=== PATIENT | female | born 1955 | race American Indian/Alaskan Native ===

== ENCOUNTER 2016-10-26 15:29 | Emergency (ER) | payer SELFPAY ==
[2016-10-26 15:29] VITALS: BMI 27.8
[2016-10-26 15:36] VITALS: RESP 18
[2016-10-26] MEDS ORDERED: Sodium Chloride 0.9% 1,000 ML IV ONE (15:50)
--- NOTE | 2016-10-26 15:54 | C.PDOC ---
History Of Present Illness 61 y/o female that presents to the ED for evaluation of left flank pain, and left side abdominal pain for the last 3 days. Otherwise, denies any fever, n/v/d , dysuria, hematuria, or any other associated symptoms at this time. Time Seen by Provider: 10/26/16 15:41 Chief Complaint (Nursing): Abdominal Pain History Per: Patient History/Exam Limitations: no limitations Onset/Duration Of Symptoms: Days (3) Current Symptoms Are (Timing): Still Present Location Of Pain/Discomfort: LUQ, LLQ Radiation Of Pain To:: Flank (left) Quality Of Discomfort: "Pain" Associated Symptoms: denies: Fever, Chills, Nausea, Vomiting, Diarrhea, Loss Of Appetite, Back Pain, Chest Pain, Constipation, Urinary Symptoms Exacerbating Factors: None Alleviating Factors: None Recent travel outside of the [place]: No Additional History Per: Patient Abnormal Vaginal Bleeding: No Past Medical History Reviewed: Historical Data, Nursing Documentation, Vital Signs Vital Signs: Last Vital Signs Temp 97.6 F 10/26/16 18:00 Pulse 60 10/26/16 18:00 Resp 18 10/26/16 18:00 BP 127/72 10/26/16 18:00 Pulse Ox 97 10/26/16 18:00 - Medical History PMH: Denies: Depression - [facility] Procedures INJECT/INFUSE NEC (12/28/13) Family History: States: No Known Family Hx - Social History Hx Tobacco Use: No Hx Alcohol Use: No Hx Substance Use: No - Immunization History Hx Tetanus Toxoid Vaccination: No Review Of Systems Except As Marked, All Systems Reviewed And Found Negative. Constitutional: Negative for: Fever, Chills Gastrointestinal: Positive for: Abdominal Pain. Negative for: Nausea, Vomiting , Diarrhea, Constipation Genitourinary: Negative for: Dysuria, Frequency, Incontinence, Hematuria Musculoskeletal: Positive for: Back Pain (left flank) Skin: Negative for: Rash Neurological: Negative for: Weakness, Numbness Physical Exam - Physical Exam Appears: Non-toxic, Other (moderate painful distress) Skin: Normal Color, Warm, Dry Head: Atraumatic, Normacephalic Eye(s): bilateral: Normal Inspection, EOMI Neck: Normal ROM, Supple Chest: Symmetrical, No Tenderness Cardiovascular: Rhythm Regular, No Murmur Respiratory: Normal Breath Sounds, No Rales, No Rhonchi, No Wheezing Gastrointestinal/Abdominal: Soft, No Tenderness Back: CVA Tenderness (left), No Vertebral Tenderness, No Paraspinal Tenderness Neurological/Psych: Oriented x3, Normal Speech, Normal Cognition ED Course And Treatment - Laboratory Results Result Diagrams: 10/26/16 16:32 10/26/16 16:32 O2 Sat by Pulse Oximetry: 100 (on RA) Pulse Ox Interpretation: Normal Progress Note: Blood work, urinalysis, abd & pelvis CT ordered and reviewed. Patient was given IV fluids, and Toradol in the ER. Medical Decision Making Medical Decision Making: r/o uti/pyelo, renal stone, gastritis. labs imaging pending 530: pt reassesed: labs ct unremarkable. pain improved. abd soft, no ttp. pt well appearing, smiling, in nad. advise outptf/u and return precautions Disposition - Disposition Referrals: Tony Bay MD [Staff Provider] - [facility] [Outside] [facility] [Outside] Disposition: HOME/ ROUTINE Disposition Time: 06:00 Condition: STABLE Additional Instructions: please follow up with your doctor/clinic. return to er with worsening symptoms or concerns. Prescriptions: Famotidine [Pepcid] 20 mg PO DAILY #20 tab Instructions: Acute Abdominal Pain (ED) - Clinical Impression Clinical Impression: Abdominal pain, Flank pain - Scribe Statement The provider has reviewed the documentation as recorded by the Raimundo Fung All medical record entries made by the Rejiibkalpana were at my direction and personally dictated by me. I have reviewed the chart and agree that the record accurately reflects my personal performance of the history, physical exam, medical decision making, and the department course for this patient. I have also personally directed, reviewed, and agree with the discharge instructions and disposition.
[2016-10-26 16:35] LABS: BASO % 0.6 % (0.0-2.0); EOS % 0.4 % (0.0-4.0); HEMOGLOBIN 12.9 g/dL (11.0-16.0); LYMPH # 2.3 K/uL (1.0-4.3); MEAN CORPUSCULAR HEMOGLOBIN 25.9 pg (27.0-31.0); MEAN CORPUSCULAR HGB CONC 31.6 g/dL (33.0-37.0); MEAN PLATELET VOLUME 9.2 fL (7.2-11.7); MONO # 0.4 K/uL (0.0-0.8); MONO % 6.9 % (0.0-10.0); NEUT # 3.3 K/uL (1.8-7.0); NEUT % 54.1 % (50.0-75.0); RBC 4.98 Mil/uL (3.80-5.20); RED CELL DISTRIBUTION WIDTH 14.1 % (11.5-14.5)
[2016-10-26 16:41] LABS: SQUAMOUS EPITHIAL 1 /hpf (0-5); URINE BILIRUBIN NEGATIVE (NEGATIVE); URINE BLOOD 1+ (NEGATIVE); URINE CLARITY Clear (Clear); URINE COLOR Yellow (YELLOW); URINE GLUCOSE (UA) NORMAL (Normal); URINE LEUKOCYTE ESTERASE TRACE Leu/uL (Negative); URINE NITRATE NEGATIVE (NEGATIVE); URINE PROTEIN NEGATIVE (NEGATIVE); URINE UROBILINOGEN NORMAL mg/dL (0.2-1.0)
[2016-10-26 16:45] LABS: PROTHROMBIN TIME 11.7 SECONDS (9.7-12.2)
[2016-10-26 16:53] LABS: ALBUMIN 3.9 g/dL (3.5-5.0)
[2016-10-26 16:56] LABS: ALB/GLOB RATIO 1.3 (1.0-2.1); ALT/SGPT 23 U/L (9-52); AST/SGOT 22 U/L (14-36); BLOOD UREA NITROGEN 12 mg/dL (7-17); CALCIUM 9.4 mg/dl (8.6-10.4); GFR AFRICAN-AMERICAN > 60; GFR NON-AFRICAN AMERICAN > 60; LIPASE 58 U/L (23-300)
--- NOTE | 2016-10-26 17:18 | CT ---
CT abdomen and pelvis History: Abdominal pain. Comparison: None available. Technique: Multiple contiguous axial images were performed through the abdomen and pelvis without the use of intravenous contrast. Subsequently, sagittal and coronal reformatted images were obtained. Findings: Scattered atelectasis at the lung bases. Punctate 1 millimeter nodule within the right middle lobe. No pleural or pericardial effusion. Liver is preserved. Question a few punctate calculi and or streak artifact at the level of the gallbladder. Spleen is preserved. Adrenal glands are preserved. Pancreas is preserved. Thickening versus underdistention of the stomach wall. Clinical correlation. Right kidney: No calculi or hydronephrosis. Left Kidney: No calculi or hydronephrosis. At the level of the distal left ureter, there is a punctate 1-2 millimeter calcification/calculus which may represent a calcified phlebolith. Urinary bladder is grossly preserved. Heterogeneous uterus and bilateral adnexa. At the level of the left adnexa, there is a 1.2 centimeter lobulated calcification which may represent a small dermoid lesion. Vascular calcifications in the pelvis. Under distended and or mildly thickened sigmoid colon. Fecal retention in the colon. Appendix not well visualized. Few shotty para-aortic and inguinal lymph nodes. Small fat containing umbilical hernia. Degenerative changes in the spine. 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 Impression: 1. Thickening versus underdistention of the stomach wall. Clinical correlation. 2. Under distended and or mildly thickened sigmoid colon. Clinical correlation. 3. At the level of the distal left ureter, there is a punctate 1-2 millimeter calcification/calculus which may represent a calcified phlebolith. 4. Heterogeneous uterus and bilateral adnexa. At the level of the left adnexa, there is a 1.2 centimeter lobulated calcification which may represent a small dermoid lesion. 5. Question few punctate calculi and or streak artifact at the level of the gallbladder. 6. Few shotty para-aortic and inguinal lymph nodes. 7. Small fat containing umbilical hernia. 8. Degenerative changes in the spine. 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
[2016-10-26 18:01] VITALS: BP 127/72; PULSE 60; TEMP 97.6
[2016-10-26 21:27] VITALS: O2SAT 100
== END 2016-10-26 18:00 | disposition home or self-care (01) ==
LOC: C.ER 15:29
DX: R10.12 Left upper quadrant pain (principal); R10.32 Left lower quadrant pain
CPT/HCPCS: 74176; 80053; 81001; 83690; 85025; 85610; 85730; 96361; 96374; 99284; J1885; J7040